=== PATIENT | male | born 1995 | race Caucasian/White ===

== ENCOUNTER 2023-05-22 15:39 | Emergency (ER) | payer OTHER, SELFPAY ==
[2023-05-22] VITALS (10 sets, daily range): BP systolic 110–142; BP diastolic 59–84; PULSE 61–78; RESP 16–18; TEMP 37.4; O2SAT 95–100; BMI 40.8
--- NOTE | 2023-05-22 15:58 | DI.CT.S_ITS ---
PROCEDURE: CT HEAD/BRAIN WO CON INDICATIONS: BROWN X 72 HRS, NEW PATTERN TECHNIQUE: Noncontrast 4.5 mm thick angled axial sections acquired from the foramen magnum to the vertex, with coronal and sagittal reformats. For radiation dose reduction, the following was used: automated exposure control, adjustment of mA and/or kV according to patient size. COMPARISON: None. FINDINGS: Image quality: Excellent. CSF spaces: Basal cisterns are patent. No extra-axial fluid collections. Ventricles are normal in size and shape. Brain: No midline shift. No intracranial masses or hemorrhage. Lees-white matter interface is normal. Skull and face: Calvarium and visualized facial bones are intact, without suspicious lesions. Sinuses: Visualized sinuses and mastoids are clear. IMPRESSION: No acute intracranial process Dictated by: Ronal Burleson M.D. on 05/22/2023 at 16:48 Approved by: Ronal Burleson M.D. on 05/22/2023 at 16:49
--- NOTE | 2023-05-22 15:59 | ED.HA ---
HPI - Headache <Mami Mac MD - Last Filed: 06/03/23 18:50> General Chief Complaint: Headache Stated Complaint: migraine headache for last 72 hrs Time Seen by Provider: 05/22/23 15:49 Mode of arrival: Ambulatory History of Present Illness HPI Narrative: 28-year-old male presents for headache times 72 hours. Headache is frontal, located behind the eyes, throbbing in nature. Has tried rest, ibuprofen, Tylenol without relief. He visited the walk-in clinic, where he received a Toradol injection, and was told that if it did not improve his headache he should come to the emergency department. Patient reports persistent pain and no real improvement after the Toradol injection. Denies history of headaches, has never had to go to the ER for a headache, denies ever having imaging of his brain. Denies trauma, nausea, numbness, weakness, tingling. Related Data Allergies Allergy/AdvReac Type Severity Reaction Status Date / Time No Known Drug Allergies Allergy Verified 05/22/23 15:54 Review of Systems <Mami Mac MD - Last Filed: 06/03/23 18:50> Review of Systems Narrative: Negative except as noted above Patient History <Mami Mac MD - Last Filed: 06/03/23 18:50> tobacco type: vaping alcohol intake frequency: a few times a month Substance Use Type: does not use Exam <Mami Mac MD - Last Filed: 06/03/23 18:50> Initial Vital Signs Initial Vital Signs: Vital Signs Temperature 99.3 F 05/22/23 15:49 Pulse Rate 74 05/22/23 15:49 Respiratory Rate 18 05/22/23 15:49 Blood Pressure 138/84 05/22/23 15:49 Pulse Oximetry 97 05/22/23 15:49 Oxygen Delivery Method Room Air 05/22/23 15:49 Const: Awake, alert, uncomfortable, in pain Eyes: PERRL, EOMI, conjunctiva normal Neck: full ROM, no rigidity ENT: Atraumatic, dentition normal, mucous membranes moist Cardiac: regular rate, regular rhythm RESP: unlabored, clear bilaterally, no wheezing GI: Atraumatic, soft, nontender, nondistended, no rebound, no guarding MSK: Atraumatic, full range of motion, pulses equal Skin: Warm, Dry, intact, no rashes Neuro: AO x3, CN II-XII grossly intact, moves all extremities Psych: affect normal, mood normal, not suicidal, not homicidal <Hermelinda Metcalf MD - Last Filed: 05/22/23 20:18> Initial Vital Signs Initial Vital Signs: Vital Signs Temperature 99.3 F 05/22/23 15:49 Pulse Rate 74 05/22/23 15:49 Respiratory Rate 18 05/22/23 15:49 Blood Pressure 138/84 05/22/23 15:49 Pulse Oximetry 97 05/22/23 15:49 Oxygen Delivery Method Room Air 05/22/23 15:49 Course <Mami Mac MD - Last Filed: 06/03/23 18:50> Course Course Narrative: New onset headache that does not relieved with [id number] medications or Toradol shot. Neurologically intact, however since patient has never had to go to the emergency department for a headache and has never had a headache like this before we will order CT imaging of the brain. IV migraine cocktail ordered for comfort. Orders Ordered: Discontinued Medications Dexamethasone (Dexamethasone 10 Mg/Ml Vial) 10 mg IV NOW ONE Stop: 05/22/23 17:04 Last Admin: 05/22/23 17:22 Dose: 10 mg Documented By: JOSE Diphenhydramine HCl (Diphenhydramine 50 Mg/Ml Vial) 50 mg IV NOW ONE Stop: 05/22/23 15:59 Last Admin: 05/22/23 16:22 Dose: 50 mg Documented By: SPF Sodium Chloride (Normal Saline 0.9%) 1,000 mls @ 1,000 mls/hr IV BOLUS ONE Stop: 05/22/23 16:57 Last Infusion: 05/22/23 17:37 Dose: Infused Documented By: Admin: 05/22/23 16:20 Dose: 1,000 mls/hr Documented By: RONAL Magnesium Sulfate (Magnesium Sulfate) 2 gm in 50 mls @ 25 mls/hr IV NOW ONE Stop: 05/22/23 19:03 Last Infusion: 05/22/23 20:55 Dose: Infused Documented By: JOSE Co-signed By: CHHAYA Admin: 05/22/23 18:40 Dose: 25 mls/hr Documented By: JOSE Co-signed By: RONAL Valproic Acid 1,000 mg/ (Dextrose) 60 mls @ 60 mls/hr IV NOW ONE Stop: 05/22/23 17:07 Last Infusion: 05/22/23 18:42 Dose: Infused Documented By: Admin: 05/22/23 17:31 Dose: 60 mls/hr Documented By: JOSE Ketorolac Tromethamine (Ketorolac 30 Mg/Ml Vial) 15 mg IV NOW ONE Stop: 05/22/23 15:59 Last Admin: 05/22/23 16:21 Dose: 15 mg Documented By: RONAL Metoclopramide HCl (Metoclopramide 10 Mg/2 Ml Inj) 10 mg IV NOW ONE Stop: 05/22/23 15:59 Last Admin: 05/22/23 16:20 Dose: 10 mg Documented By: RONAL Reevaluation(s) Reevaluation #1: Labs and imaging reviewed, no acute abnormalities identified. Patient reassessed, he has no improvement with the migraine cocktail. We will add Decadron, valproic acid, magnesium. Patient is a member of [place] and vaccinated against bacterial meningitis. In addition patient has no nuchal rigidity, fever, neuro deficits to suggest central process. Reevaluation #2: Patient has received Decadron and valproic acid, reports that his headache has started to improve. Pending magnesium administration. Reevaluation #3: Delores patient is signed out to Dr. Metcalf at 1800 Vital Signs Vital signs: Vital Signs - 8 hr 05/22/23 15:49 05/22/23 16:30 05/22/23 16:35 Temperature 99.3 F Pulse Rate 74 69 68 Respiratory Rate 18 Blood Pressure 138/84 135/78 Pulse Oximetry 97 97 97 Oxygen Delivery Method Room Air 05/22/23 17:00 05/22/23 17:30 05/22/23 18:01 Temperature Pulse Rate 62 78 61 Respiratory Rate Blood Pressure 127/79 142/81 H 133/73 Pulse Oximetry 95 99 100 Oxygen Delivery Method 05/22/23 18:30 05/22/23 19:00 05/22/23 19:30 Temperature Pulse Rate 67 75 75 Respiratory Rate 16 Blood Pressure 123/64 116/63 117/59 L Pulse Oximetry 99 98 98 Oxygen Delivery Method Room Air <Hermelinda Metcalf MD - Last Filed: 05/22/23 20:18> Orders Ordered: Discontinued Medications Dexamethasone (Dexamethasone 10 Mg/Ml Vial) 10 mg IV NOW ONE Stop: 05/22/23 17:04 Last Admin: 05/22/23 17:22 Dose: 10 mg Documented By: JOSE Diphenhydramine HCl (Diphenhydramine 50 Mg/Ml Vial) 50 mg IV NOW ONE Stop: 05/22/23 15:59 Last Admin: 05/22/23 16:22 Dose: 50 mg Documented By: RONAL Sodium Chloride (Normal Saline 0.9%) 1,000 mls @ 1,000 mls/hr IV BOLUS ONE Stop: 05/22/23 16:57 Last Infusion: 05/22/23 17:37 Dose: Infused Documented By: Admin: 05/22/23 16:20 Dose: 1,000 mls/hr Documented By: RONAL Magnesium Sulfate (Magnesium Sulfate) 2 gm in 50 mls @ 25 mls/hr IV NOW ONE Stop: 05/22/23 19:03 Last Infusion: 05/22/23 20:55 Dose: Infused Documented By: JOSE Co-signed By: CHHAYA Admin: 05/22/23 18:40 Dose: 25 mls/hr Documented By: JOSE Co-signed By: RONAL Valproic Acid 1,000 mg/ (Dextrose) 60 mls @ 60 mls/hr IV NOW ONE Stop: 05/22/23 17:07 Last Infusion: 05/22/23 18:42 Dose: Infused Documented By: Admin: 05/22/23 17:31 Dose: 60 mls/hr Documented By: JOES Ketorolac Tromethamine (Ketorolac 30 Mg/Ml Vial) 15 mg IV NOW ONE Stop: 05/22/23 15:59 Last Admin: 05/22/23 16:21 Dose: 15 mg Documented By: RONAL Metoclopramide HCl (Metoclopramide 10 Mg/2 Ml Inj) 10 mg IV NOW ONE Stop: 05/22/23 15:59 Last Admin: 05/22/23 16:20 Dose: 10 mg Documented By: RONAL Vital Signs Vital signs: Vital Signs - 8 hr 05/22/23 15:49 05/22/23 16:30 05/22/23 16:35 Temperature 99.3 F Pulse Rate 74 69 68 Respiratory Rate 18 Blood Pressure 138/84 135/78 Pulse Oximetry 97 97 97 Oxygen Delivery Method Room Air 05/22/23 17:00 05/22/23 17:30 05/22/23 18:01 Temperature Pulse Rate 62 78 61 Respiratory Rate Blood Pressure 127/79 142/81 H 133/73 Pulse Oximetry 95 99 100 Oxygen Delivery Method 05/22/23 18:30 05/22/23 19:00 05/22/23 19:30 Temperature Pulse Rate 67 75 75 Respiratory Rate 16 Blood Pressure 123/64 116/63 117/59 L Pulse Oximetry 99 98 98 Oxygen Delivery Method Room Air MDM - Headache <Mami Mac MD - Last Filed: 06/03/23 18:50> Differential Diagnosis Differential diagnosis: Likely migraine, tension headache and subarachnoid hemorrhage Lab Data 05/22/23 16:05 05/22/23 16:05 Labs: Lab Results 05/22/23 Range/Units 16:05 WBC 7.4 (4.5-11.0) X10^3/uL RBC 5.13 (4.5-5.9) X10^6/uL Hgb 14.5 (13.5-17.5) g/dL Hct 42.0 (41-53) % MCV 81.9 (80-100) fL MCH 28.2 (26-34) PG MCHC 34.5 (30-36) % RDW 12.7 (11.6-14.8) % Plt Count 232 (150-400) X10^3/uL Neut % (Auto) 65.5 (50-75) % Lymph % (Auto) 21.7 L (25-40) % [place] % (Auto) 12.4 (3-14) % Eos % (Auto) 0.1 L (2-4) % Baso % (Auto) 0.3 (0-2) % Neut # (Auto) 4800 (3838-1051) /uL Lymph # (Auto) 1600 (0723-7557) /uL [place] # (Auto) 900 (0-900) /uL Eos # (Auto) 0 (0-450) /uL Baso # (Auto) 0 (0-100) /uL Sodium 138 (137-145) mmol/L Potassium 3.7 (3.4-5.1) mmol/L Chloride 99 (98-107) mmol/L Carbon Dioxide 29 (22-32) mmol/L BUN 12 (9-20) mg/dL Creatinine 1.02 (0.66-1.25) mg/dL Estimated GFR > 60 (>60) mL/min BUN/Creatinine Ratio 11.8 (6-22) Glucose 106 H (70-100) mg/dL Calcium 10.2 (8.4-10.2) mg/dL Total Bilirubin 0.6 (0.2-1.3) mg/dL AST 32 (17-59) IU/L ALT 41 (<50) IU/L Alkaline Phosphatase 82 (38-126) U/L Total Protein 8.2 (6.3-8.2) g/dL Albumin 4.7 (3.5-5.0) g/dL Globulin 3.5 (1.7-4.1) g/dL Albumin/Globulin Ratio 1.3 (1.0-2.8) <Hermelinda Metcalf MD - Last Filed: 05/22/23 20:18> Lab Data Labs: Lab Results 05/22/23 Range/Units 16:05 WBC 7.4 (4.5-11.0) X10^3/uL RBC 5.13 (4.5-5.9) X10^6/uL Hgb 14.5 (13.5-17.5) g/dL Hct 42.0 (41-53) % MCV 81.9 (80-100) fL MCH 28.2 (26-34) PG MCHC 34.5 (30-36) % RDW 12.7 (11.6-14.8) % Plt Count 232 (150-400) X10^3/uL Neut % (Auto) 65.5 (50-75) % Lymph % (Auto) 21.7 L (25-40) % [place] % (Auto) 12.4 (3-14) % Eos % (Auto) 0.1 L (2-4) % Baso % (Auto) 0.3 (0-2) % Neut # (Auto) 4800 (1808-0620) /uL Lymph # (Auto) 1600 (6097-8870) /uL [place] # (Auto) 900 (0-900) /uL Eos # (Auto) 0 (0-450) /uL Baso # (Auto) 0 (0-100) /uL Sodium 138 (137-145) mmol/L Potassium 3.7 (3.4-5.1) mmol/L Chloride 99 (98-107) mmol/L Carbon Dioxide 29 (22-32) mmol/L BUN 12 (9-20) mg/dL Creatinine 1.02 (0.66-1.25) mg/dL Estimated GFR > 60 (>60) mL/min BUN/Creatinine Ratio 11.8 (6-22) Glucose 106 H (70-100) mg/dL Calcium 10.2 (8.4-10.2) mg/dL Total Bilirubin 0.6 (0.2-1.3) mg/dL AST 32 (17-59) IU/L ALT 41 (<50) IU/L Alkaline Phosphatase 82 (38-126) U/L Total Protein 8.2 (6.3-8.2) g/dL Albumin 4.7 (3.5-5.0) g/dL Globulin 3.5 (1.7-4.1) g/dL Albumin/Globulin Ratio 1.3 (1.0-2.8) MDM Narrative Medical decision making narrative: Otherwise healthy 28-year-old gentleman presents with severe headache. He does not have a significant history of migraine. He does not describe thunderclap type headache presentation, no fevers, no head trauma and no meningismus signs. In the emergency department he was initially given fluids Toradol Reglan and Benadryl with minimal effect. This was followed with dexamethasone, magnesium and valproic acid which has been effective. On re-evaluation he states that he has some minor tenderness with significant lateral gaze bilaterally but otherwise his headache is significantly improved. He again, has no nuchal rigidity or back pain. Remains afebrile and blood workup including CBC without leukocytosis and normal chemistries. CT scan of the head does not show any acute findings At this time there does not appear to be a life-threatening etiology for his headache, specifically bacterial meningitis, brain tumor, intracranial bleed of any type chronic or acute. Viral meningitis does remain within the differential and we did discuss potential for lumbar puncture. At this point he feels that symptoms are improved enough that with shared decision-making we opted to have him go home. I did let him know that if his symptoms are returning or worse that he does need to return to the emergency department and a return to the ER would likely necessitate an LP for further diagnostic purposes. Questions are answered and he is safe for discharge Discharge Plan Departure Patient Disposition: Home Clinical Impression: Headache Instructions: DI for Headache Activity Restrictions/Additional Instructions: Thank you for coming in today You have had a full workup for your headache including head CT and blood work. I have not found any life-threatening explanations. With the initial medications we typically use for migraine, your headache did not improve much. With steroids and additional medications for headache you have gotten a bit better. At this time, I think it is safe for you to go home however if you are finding that the headache is returning you are having new symptoms, especially fever, you do need to return to the emergency department. If the headache returns after the medications given today you likely do need a lumbar puncture to look at the spinal fluid to make sure you do not have a viral meningitis. Referrals: ProviderPamela [Primary Care Provider] - Stand Alone Forms: Patient Portal/API
[2023-05-22] MEDS: SODIUM CHLORIDE 0.9% 1,000 ML 1000 ML IV (16:20)
[2023-05-22] MEDS: METOCLOPRAMIDE 10 MG/2 ML INJ IV (16:20)
[2023-05-22] MEDS: KETOROLAC 30 MG/ML VIAL 15 MG IV (16:21)
[2023-05-22 16:22] LABS: Add Manual Diff / Slide Review NO; Basophils Absolute Auto 0 /uL (0-100); Basophils Percent Auto 0.3 % (0-2); Eosinophils Absolute Auto 0 /uL (0-450); Eosinophils Percent Auto 0.1 % (2-4); Hemoglobin 14.5 g/dL (13.5-17.5); Lymphocytes Absolute Auto 1600 /uL (1100-4500); Lymphocytes Percent Auto 21.7 % (25-40); Mean Corpuscular HGB Conc 34.5 % (30-36); Mean Corpuscular Hemoglobin 28.2 PG (26-34); Mean Corpuscular Volume 81.9 fL (80-100); Monocytes Absolute Auto 900 /uL (0-900); Monocytes Percent Auto 12.4 % (3-14); Neutrophils Absolute Auto 4800 /uL (1500-7000); Neutrophils Percent Auto 65.5 % (50-75); Platelet Count 232 X10^3/uL (150-400); Red Blood Cell Count 5.13 X10^6/uL (4.5-5.9); Red Cell Distribution Width 12.7 % (11.6-14.8); White Blood Cell Count 7.4 X10^3/uL (4.5-11.0)
[2023-05-22] MEDS: diphenhydrAMINE 50 MG/ML VIAL IV (16:22)
--- NOTE | 2023-05-22 16:33 | PC.NURSE ---
Pt feels sleepy after MAR medications, lights dimmed and warm blankets given to patient.
[2023-05-22 16:37] LABS: Alanine Aminotransferase 41 IU/L (<50); Albumin 4.7 g/dL (3.5-5.0); Albumin Globulin Ratio 1.3 (1.0-2.8); Alkaline Phosphatase 82 U/L (38-126); Aspartate Aminotransferase 32 IU/L (17-59); BUN Creatinine Ratio 11.8 (6-22); Bilirubin Total 0.6 mg/dL (0.2-1.3); Blood Urea Nitrogen 12 mg/dL (9-20); Calcium 10.2 mg/dL (8.4-10.2); Carbon Dioxide 29 mmol/L (22-32); Chloride 99 mmol/L (98-107); Estimated Glomerular Filt Rate > 60 mL/min (>60); Globulin 3.5 g/dL (1.7-4.1); Glucose 106 mg/dL (70-100); HEMOLYSIS < 15 (0-50); Potassium 3.7 mmol/L (3.4-5.1); Sodium 138 mmol/L (137-145); Total Protein 8.2 g/dL (6.3-8.2)
[2023-05-22] MEDS: DEXAMETHASONE 10 MG/ML VIAL IV (17:22)
[2023-05-22] MEDS: VALPROIC ACID 1,000 MG in DEXTROSE 5 % IN WATER 50 ML 60 MG IV (17:31)
[2023-05-22] MEDS: MAGNESIUM SULFATE 2 GM/50 ML PIGGYBACK IV (18:40)
== END 2023-05-22 21:06 | disposition home or self-care (01) ==
PROVIDERS: Emergency Medicine; Emergency Provider Emergency Medicine
DX: R51.9 Headache, unspecified (principal)
CPT/HCPCS: 36415; 70450; 80053; 85025; 96361; 96365; 96375; 99284; J1100; J1200; J1885; J2765; J3475

== ENCOUNTER 2024-07-17 14:24 | Emergency (ER) | payer OTHER, SELFPAY ==
[2024-07-17 14:31] VITALS: BP 135/84; PULSE 79; RESP 16; TEMP 37; O2SAT 97; BMI 26.9
--- NOTE | 2024-07-17 14:36 | DI.RAD.S_ITS ---
PROCEDURE: XR ANKLE RT MIN 3V INDICATIONS: fall TECHNIQUE: 3 views of the ankle were acquired. COMPARISON: None. FINDINGS: Bones: Questionable tiny bone fragment at the tip of the lateral malleolus. No displaced fracture or dislocation otherwise. Small dorsal osteophyte at the talus. Soft tissues: No suspicious calcifications. Soft tissue swelling is present. IMPRESSION: Questionable tiny bone fragment at the tip of the lateral malleolus, there is adjacent soft tissue swelling. No other displaced fracture or dislocation. Dictated by: Grant Torrez M.D. on 07/17/2024 at 14:16 Approved by: Grant Torrez M.D. on 07/17/2024 at 14:17
--- NOTE | 2024-07-17 14:51 | ED_ITS ---
HPI - Extremity Injury (Lower) <Allie Caputo PA-C - Last Filed: 07/17/24 15:40> General Chief Complaint: Extremity Injury, Lower Stated Complaint: rolled r ankle Time Seen by Provider: 07/17/24 14:51 Source: patient Mode of arrival: Wheelchair History of Present Illness HPI Narrative: 29-year-old male active [employer] presents with right ankle pain and swelling. He was simply shooting some baskets and walking around he denied jumping but he somehow inverted his ankle. He is complaining of lateral pain high up along the malleolus. He does have a history of previous ankle sprains but he has never had 1 this severe where he could not put weight on it. He has no history of any fracture. He is denying any numbness or tingling or loss of sensation. It occurred around 930 this morning. All other systems are reviewed and are negative. Related Data Allergies Allergy/AdvReac Type Severity Reaction Status Date / Time No Known Drug Allergies Allergy Verified 07/17/24 14:36 Review of Systems <Allie Caputo PA-C - Last Filed: 07/17/24 15:40> Review of Systems Narrative: All other systems reviewed and are negative. Patient History <JAIDEN Moise Last Filed: 07/17/24 15:40> Social History Smoking Status: Current every day smoker Smoking Status: Current every day smoker tobacco type: vaping alcohol intake frequency: a few times a month Exam <JAIDEN Moise Last Filed: 07/17/24 15:40> Initial Vital Signs Initial Vital Signs: Vital Signs Temperature 98.6 F 07/17/24 14:31 Pulse Rate 79 07/17/24 14:31 Respiratory Rate 16 07/17/24 14:31 Blood Pressure 135/84 07/17/24 14:31 Pulse Oximetry 97 07/17/24 14:31 Oxygen Delivery Method Room Air 07/17/24 14:31 Vital signs reviewed and are normal. Const General: cooperative, healthy appearing, comfortable and No acute distress Resp Effort & Inspection: normal respiratory effort and able to speak in complete sentences Auscultation: clear to auscultation bilaterally Cardio Rate: regular rate Rhythm: regular rhythm Skin General: no rashes or lesions noted Extrem Right lower extremity: normal to inspection, lower leg Details: normal to inspection and ankle (Focal tenderness proximal lateral malleolus. Normal DP, PT pulses.) Details: abnormal to inspection, tenderness, swelling and abnormal ROM; no ecchymosis Other: Faint crescent sign on the lateral malleolus. No issues identified with the dorsal foot, plantar foot, Achilles or heel. He has good movement of his distal phalanges. Normal capillary refill and sensory is intact. Flexion and extension are intact but do cause discomfort against resistance. Inversion and eversion were not performed. Anterior drawer reveals no laxity but it is uncomfortable. <Mami Avendano DO - Last Filed: 07/18/24 09:09> Initial Vital Signs Initial Vital Signs: Vital Signs Temperature 98.6 F 07/17/24 14:31 Pulse Rate 79 07/17/24 14:31 Respiratory Rate 16 07/17/24 14:31 Blood Pressure 135/84 07/17/24 14:31 Pulse Oximetry 97 07/17/24 14:31 Oxygen Delivery Method Room Air 07/17/24 14:31 Course <Allie Caputo PA-C - Last Filed: 07/17/24 15:40> Orders Ordered: Discontinued Medications Acetaminophen (Acetaminophen 325 Mg Tablet) 975 mg PO NOW ONE Stop: 07/17/24 15:42 Last Admin: 07/17/24 15:45 Dose: 975 mg Documented By: ES Vital Signs Vital signs: Vital Signs - 8 hr 07/17/24 14:31 Temperature 98.6 F Pulse Rate 79 Respiratory Rate 16 Blood Pressure 135/84 Pulse Oximetry 97 Oxygen Delivery Method Room Air <DO Natali Mcclain Last Filed: 07/18/24 09:09> Orders Ordered: Discontinued Medications Acetaminophen (Acetaminophen 325 Mg Tablet) 975 mg PO NOW ONE Stop: 07/17/24 15:42 Last Admin: 07/17/24 15:45 Dose: 975 mg Documented By: ES Vital Signs Vital signs: Vital Signs - 8 hr 07/17/24 14:31 Temperature 98.6 F Pulse Rate 79 Respiratory Rate 16 Blood Pressure 135/84 Pulse Oximetry 97 Oxygen Delivery Method Room Air MDM - Extremity Injury (Lower) <JAIDEN Moise Last Filed: 07/17/24 15:40> Imaging Data Extremity x-ray #1: My Impression: Deferred to radiologist's interpretation below. Radiologist's Impression: PROCEDURE: XR ANKLE RT MIN 3V INDICATIONS: fall TECHNIQUE: 3 views of the ankle were acquired. COMPARISON: None. FINDINGS: Bones: Questionable tiny bone fragment at the tip of the lateral malleolus. No displaced fracture or dislocation otherwise. Small dorsal osteophyte at the talus. Soft tissues: No suspicious calcifications. Soft tissue swelling is present. IMPRESSION: Questionable tiny bone fragment at the tip of the lateral malleolus, there is adjacent soft tissue swelling. No other displaced fracture or dislocation. Dictated by: Grant Torrez M.D. on 07/17/2024 at 14:16 Approved by: Grant Torrez M.D. on 07/17/2024 at 14:17 [facility] Narrative Medical decision making narrative: Clinical exam was consistent with an acute ankle sprain. His pain is much higher on the lateral ankle, the x-ray shows a faint possible small avulsion of the distal fibula, it is questionable according to the radiologist. He is certainly swollen, so he is treated for possible avulsion fracture in addition to his ankle sprain. I did review anatomy with him showing the ligament insertions and attachments, he is fitted with a long boot and given crutches with training. He is road tested and he is safe. I have asked him to follow up with his PCP at the [facility] in 1-2 weeks for reexamination, he may benefit from physical therapy, we discussed ice, elevation, wearing the boot at all times use a shower chair for safety, and took your bedding, acetaminophen or ibuprofen as needed for pain. Do not hesitate to seek medical attention if you have any worsening symptoms. The hoff is to avoid re-injury. Discharge Plan Departure Patient Disposition: Home Clinical Impression: Ankle sprain and strain, Avulsion fracture of distal end of fibula Instructions: DI for Ankle Sprain, DI for Avulsion Fracture Activity Restrictions/Additional Instructions: I believe you have an acute ankle sprain, I did review the x-rays with you there is a questionable tiny avulsion of your distal fibula which is the lateral aspect of her ankle. This is where I ligament attaches, treatment is the same, I would like you to wear the boot at all times, and Rick bedding, elevate, use ice regularly, you may use ibuprofen or acetaminophen for pain. Please do follow up with your primary at the [facility] in the next 1-2 weeks, you may benefit from physical therapy, advanced your weightbear as tolerated after about 2 weeks or so. Do not hesitate to seek medical attention if you have any worsening pain or any new worrisome symptoms. The hoff is to avoid re- injury in the next 6 months. Referrals: Provider,Pamela GILLETTE [Primary Care Provider] - Stand Alone Forms: Patient Portal/API/Survey, Work Release Note ED Sign-out <Mami Avendano DO - Last Filed: 07/18/24 09:09> Cosign ED Attending Yudy Attestation: I was immediately available in the department for consultation.
[2024-07-17] MEDS: ACETAMINOPHEN 325 MG TABLET 975 MG PO (15:45)
== END 2024-07-17 15:51 | disposition home or self-care (01) ==
PROVIDERS: Emergency Provider Physician Assistant Medical
DX: S82.831A Other fracture of upper and lower end of right fibula, initial encounter for closed fracture (principal); X50.1XXA Overexertion from prolonged static or awkward postures, initial encounter; Y93.67 Activity, basketball
CPT/HCPCS: 73610; 99283